=== PATIENT | female | born 1980 | race Caucasian/White ===

== ENCOUNTER 2025-01-21 08:02 | Day surgery (SDC) | payer OTHER ==
[2025-01-21] MEDS: Lactated Ringers 1,000 ML IV SCH (08:30)
[2025-01-21] MEDS ORDERED: Midazolam 1 MG/ML 2 ML SDV ONE (08:55)
[2025-01-21] MEDS ORDERED: Ketamine 200 MG/20 ML MDV ONE (08:55)
[2025-01-21] MEDS ORDERED: Lidocaine 2% 20 ML MDV ONE (08:55)
[2025-01-21] MEDS ORDERED: fentaNYL 50 MCG/ML SDV ONE (08:55)
[2025-01-21] MEDS ORDERED: Propofol 200 MG/20 ML SDV ONE ×2 (08:55)
[2025-01-21 11:40] VITALS: BP 124/68; PULSE 58
== END 2025-01-21 10:24 | disposition home or self-care (01) ==
LOC: CC.SDS 08:02
PROVIDERS: ATTEND Family Medicine
DX: Z12.11 Encounter for screening for malignant neoplasm of colon (principal); K29.50 Unspecified chronic gastritis without bleeding; K57.30 Diverticulosis of large intestine without perforation or abscess without bleeding; I10 Essential (primary) hypertension; E10.43 Type 1 diabetes mellitus with diabetic autonomic (poly)neuropathy; K31.84 Gastroparesis; E78.00 Pure hypercholesterolemia, unspecified; E03.9 Hypothyroidism, unspecified; Z79.84 Long term (current) use of oral hypoglycemic drugs; Z79.890 Hormone replacement therapy; Z79.899 Other long term (current) drug therapy
CPT/HCPCS: 00813; 87081; J2003; J2250; J2704; J3010; J3490; J7120